=== PATIENT | female | born 1980 | race Two or more races ===

== ENCOUNTER 2022-11-07 08:19 | Emergency (ER) | payer SELFPAY ==
[~2022-11-07] VITALS: Ht 167.6 cm; Wt 74.0 kg
[2022-11-07 08:33] VITALS: BP 119/91
[2022-11-07] MEDS ORDERED: CEPH500T MT (10:36)
[2022-11-07] MEDS ORDERED: ACET-2708 MT (10:36)
== END 2022-11-07 11:19 | disposition home or self-care (01) ==
LOC: ER 08:19
DX: L02.31 Cutaneous abscess of buttock (principal); E78.00 Pure hypercholesterolemia, unspecified; Z98.890 Other specified postprocedural states
CPT/HCPCS: 81025; 99283

== ENCOUNTER 2024-07-02 13:48 | Emergency (ER) | payer MEDICAID ==
[~2024-07-02] VITALS: Ht 165.1 cm; Wt 80.0 kg
[~2024-07-02 13:48] MED LIST: ACET-2708 MT; CEPH500T MT
[2024-07-02 13:50] VITALS: BP 136/95; PULSE 120; RESP 22; TEMP 37; O2SAT 98; O2SAT 99
== END 2024-07-02 16:46 | disposition left against medical advice (07) ==
LOC: ER 13:48
DX: R07.9 Chest pain, unspecified (principal); Z53.21 Procedure and treatment not carried out due to patient leaving prior to being seen by health care provider
CPT/HCPCS: 93005

== ENCOUNTER 2024-08-14 18:00 | Emergency (ER) | payer MEDICAID ==
[~2024-08-14] VITALS: Ht 165.1 cm; Wt 70.0 kg
[2024-08-14 18:08] VITALS: BP 153/93; PULSE 95; RESP 18; TEMP 36.7; O2SAT 99
[2024-08-14] MEDS: HALOPERIDOL LACTATE 5MG/ML VIAL IM ONE (18:46)
[2024-08-14] MEDS: ONDANSETRON HCL 4MG/2ML INJ IV ONE (20:51)
[2024-08-14 21:16] LABS: CARBON DIOXIDE 22 mEq/L (21-32); CHLORIDE 101 mEq/L (98-107); POTASSIUM 3.2 mEq/L (3.5-5.1); SODIUM 139 mEq/L (136-145)
[2024-08-14 21:17] LABS: CALCIUM 9.8 mg/dL (8.7-10.4)
[2024-08-14 21:21] LABS: CREATININE 0.7 mg/dL (0.6-1.0)
[2024-08-14 21:22] LABS: GLUCOSE 104 mg/dL (70-105); UREA NITROGEN BLOOD 7 mg/dL (9-23)
[2024-08-14 21:23] LABS: ALBUMIN 4.6 g/dL (3.2-4.8)
[2024-08-14 21:24] LABS: ALANINE AMINOTRANSFERASE 22 IU/L (10-49); ASPARTATE AMINOTRANSFERASE 36 IU/L (<34); BILIRUBIN TOTAL 0.3 mg/dL (0.1-1.0); HCG SCREEN NEGATIVE; PROTEIN TOTAL 8.1 g/dL (6.0-8.3)
[2024-08-14 21:41] LABS: BILIRUBIN DIRECT < 0.1 mg/dL (<=3.0)
[2024-08-14 22:08] LABS: BASOPHILS % 0.4 % (0.0-2.0); DIFFERENTIAL COMMENT 0; EOSINOPHILS % 0.3 % (0.0-5.0); HEMATOCRIT. 35.3 % (36.0-48.0); LYMPHOCYTES % 7.3 % (20.0-50.0); MEAN CORPUSCULAR HEMOGLOBIN 23.3 pg (28.0-32.0); MEAN CORPUSCULAR HGB CONC 31.3 g/dL (31.0-37.0); MEAN CORPUSCULAR VOLUME 74.6 fL (81.0-99.0); MEAN PLATELET VOLUME 8.9 fl (7.4-10.4); MONOCYTES % 6.1 % (2.0-8.0); NEUTROPHILS % 85.9 % (40.0-76.0); PLATELET 468 x1000/uL (130-400); RED BLOOD CELL COUNT 4.74 mill/uL (4.2-5.4); RED CELL DISTRIBUTION WIDTH 21.3 % (11.6-14.6); WHITE BLOOD COUNT 13.1 x1000/uL (4.5-11.0)
[2024-08-14] MEDS: KETOROLAC 30MG/ML VIAL IV STA (22:16)
[2024-08-15] MEDS ORDERED: ONDA-239 PO
[2024-08-16] MEDS ORDERED: ONDA-239 PO (09:08)
[2024-08-16] MEDS ORDERED: PROM25SU57 RC (09:08)
[2024-08-16] MEDS ORDERED: DICY20TA2 MT (10:04)
== END 2024-08-15 03:01 | disposition home or self-care (01) ==
LOC: ER 18:00
DX: R11.15 Cyclical vomiting syndrome unrelated to migraine (principal); I95.9 Hypotension, unspecified; Z79.899 Other long term (current) drug therapy
CPT/HCPCS: 99284; 96374; 96375; 80076; 80048; 84703; 83690; 85025; 36415; 96372; J1885; J1630; J2405

== ENCOUNTER 2024-08-16 08:06 | Emergency (ER) | payer MEDICAID ==
[~2024-08-16] VITALS: Ht 162.6 cm; Wt 83.0 kg
[~2024-08-16 08:06] MED LIST changes: +ONDA-239 PO
[2024-08-16 08:09] VITALS: BP 133/80; PULSE 88; RESP 18; TEMP 36.8; O2SAT 99
[2024-08-16] MEDS: METOCLOPRAMIDE HCL 10MG/2ML VIAL IM ONE (09:00)
[2024-08-16] MEDS: ONDANSETRON 4MG ODT PO ONE (09:00)
[2024-08-16] MEDS ORDERED: ONDA-239 PO (09:08)
[2024-08-16] MEDS ORDERED: PROM25SU57 RC (09:08)
[2024-08-16] MEDS ORDERED: DICY20TA2 MT (10:04)
== END 2024-08-16 10:28 | disposition home or self-care (01) ==
LOC: ER 08:06
DX: R11.15 Cyclical vomiting syndrome unrelated to migraine (principal)
CPT/HCPCS: 99283; 96372; Q0162; J2765